=== PATIENT | female | born 1975 | race Caucasian/White ===

== ENCOUNTER 2019-01-23 16:00 | Emergency (ER) | payer MEDICAID ==
[~2019-01-23] VITALS: Ht 161.3 cm; Wt 61.4 kg
[~2019-01-23 16:00] MED LIST: NO HOME MEDS
[2019-01-23 16:01] VITALS: BP 108/70
--- NOTE | 2019-01-23 18:07 | NUR ---
PT CALLED TO FAST TRACK X3, NIL. PROVIDER NOTIFIED, NO FURTHER ACTIONS REQUESTED.
== END 2019-01-23 18:07 | disposition left against medical advice (07) ==
LOC: ER 16:01
DX: H66.93 Otitis media, unspecified, bilateral (principal); Z53.21 Procedure and treatment not carried out due to patient leaving prior to being seen by health care provider

== ENCOUNTER 2019-02-08 09:42 | Emergency (ER) | payer MEDICAID ==
[~2019-02-08] VITALS: Ht 160 cm; Wt 59.1 kg
[2019-02-08] MEDS ORDERED: LIDOcaine 1% w/epiNEPHrine 1:200,000 30ml vial IM ONE (09:50)
[2019-02-08 10:46] VITALS: BP 104/70
== END 2019-02-08 10:48 | disposition home or self-care (01) ==
LOC: ER 09:43
DX: S61.011A Laceration without foreign body of right thumb without damage to nail, initial encounter (principal); W26.0XXA Contact with knife, initial encounter; Y93.89 Activity, other specified; Y92.89 Other specified places as the place of occurrence of the external cause; Y99.9 Unspecified external cause status
CPT/HCPCS: 29130; 99283

== ENCOUNTER 2020-02-27 19:39 | Emergency (ER) | payer MEDICAID ==
[~2020-02-27] VITALS: Ht 160 cm; Wt 50.4 kg
[2020-02-27 19:45] VITALS: BP 110/77
--- NOTE | 2020-02-27 20:52 | NUR ---
Pt walked out of the ED after being in department for 1 hour and 5 minutes. I stopped the pt in the [place] as she was leaving and asked her if she could wait while I talk to the provider, she stated that she wanted to go home and follow up with her PCP. I further asked the patient if she would have a seat and give me just a few minutes as the provider had signed up for the patient, she denied stating that she wasn't willing to wait. Talked to CAMACHO Harrison as the pt was walking out and notified him of her leaving.
== END 2020-02-27 20:59 | disposition left against medical advice (07) ==
LOC: ER 19:40
DX: M54.2 Cervicalgia (principal); Z53.21 Procedure and treatment not carried out due to patient leaving prior to being seen by health care provider

== ENCOUNTER 2023-04-01 21:36 | Emergency (ER) | payer MEDICAID | END 2023-04-01 22:28 | disposition left against medical advice (07) | LOC: ER 21:37 | DX: R22.30 Localized swelling, mass and lump, unspecified upper limb (principal); Z53.21 Procedure and treatment not carried out due to patient leaving prior to being seen by health care provider ==

== ENCOUNTER 2023-04-03 12:13 | Emergency (ER) | payer MEDICAID ==
[~2023-04-03] VITALS: Ht 165.1 cm; Wt 54.2 kg
[2023-04-03 14:35] VITALS: BP 105/62; PULSE 84; RESP 18; TEMP 98.3; O2SAT 100
== END 2023-04-03 17:54 | disposition left against medical advice (07) ==
LOC: ER 12:14
DX: M79.643 Pain in unspecified hand (principal); Z53.21 Procedure and treatment not carried out due to patient leaving prior to being seen by health care provider
CPT/HCPCS: 99281

== ENCOUNTER 2025-06-21 16:01 | Emergency (ER) | payer MEDICAID ==
[~2025-06-21] VITALS: Ht 165.1 cm; Wt 56.8 kg
[2025-06-21 16:06] VITALS: BP 95/70; PULSE 104; RESP 16; TEMP 98.1; O2SAT 97
[2025-06-21 16:46] LABS: MEAN PLATELET VOLUME 8.0 FL (7.4-10.4); RED CELL DISTRIBUTION WIDTH 15.4 % (11.5-14.5)
[2025-06-21 17:03] LABS: CREATININE 0.40 MG/DL (0.40-0.90); TOTAL CARBON DIOXIDE 30.3 MMOL/L (24-32); eCRCL 156 ML/MIN; eGFR > 90 ML/MIN
--- NOTE | 2025-06-21 19:02 | Physician Documentation ---
History of Present Illness Chief Complaint: Abdominal Pain w/vomiting Stated Complaint: R SIDE PAIN/CONSTIPATION Primary Medical Doctor: [facility] HPI This is a 49-year-old female who presents with five days of constipation, patient reports that she is having bowel movements however they are small and hard. Patient additionally reports right-sided abdominal pain with vomiting. Medication Reconciliation Allergies: Coded Allergies: No Known Allergies (Unverified , 04/03/23) Miscellaneous Medications Home Med List (No Home Medications), (Reported) Past Medical History Past Medical History: No Pertinent History Past Surgical History: no surgical history Alcohol Use: Heavy Drug Use: none Lives with: Family Lives In: Home Review of Systems ROS As stated above in the HPI, otherwise all systems are reviewed and negative. Physical Exam Vital Signs: Temperature: 98.1, Source: Oral, Heart Rate: 104, Respiratory Rate: 16, BP: 95/70, Pulse Oximetry: 97, Weight: 56.820 Oxygen Flow Rate: 0 Physical Exam VITALS: Reviewed and as above. GENERAL: Alert, nontoxic appearing, no apparent distress. RESPIRATORY: No increased work of breathing, no respiratory distress, speaking in full clear sentences Progress Results/Orders Results/Orders Vital Signs 06/21/25 16:06 Temp 98.1 Pulse 104 Resp 16 B/P (MAP) 95/70 Pulse Ox 97 O2 Flow Rate 0 Laboratory Tests Test 06/21/25 16:24 White Blood Count 6.9 Red Blood Count 4.93 Hemoglobin 13.7 Hematocrit 41.2 Mean Corpuscular Volume 83.6 Mean Corpuscular Hemoglobin 27.7 Mean Corpuscular Hemoglobin Concent 33.1 Red Cell Distribution Width 15.4 H Platelet Count 381 Mean Platelet Volume 8.0 Neutrophils (%) (Auto) 66.9 Lymphocytes (%) (Auto) 20.1 L Monocytes (%) (Auto) 8.3 Eosinophils (%) (Auto) 3.8 Basophils (%) (Auto) 0.9 Neutrophils # (Auto) 4.6 Lymphocytes # (Auto) 1.4 Monocytes # (Auto) 0.6 Eosinophils # (Auto) 0.3 Basophils # (Auto) 0.1 CBC Comment Sodium Level 138 Potassium Level 4.0 Chloride Level 100 Carbon Dioxide Level 30.3 Anion Gap 8 Blood Urea Nitrogen 8 Creatinine 0.40 Estimated GFR/1.73 m2 > 90 BUN/Creatinine Ratio 20.0 Glucose Level 105 H Calcium Level 8.6 Total Bilirubin 0.3 Aspartate Amino Transf (AST/SGOT) 26 Alanine Aminotransferase (ALT/SGPT) 29 Alkaline Phosphatase 93 Total Protein 7.7 Albumin 3.2 L Globulin 4.5 H Albumin/Globulin Ratio 0.7 L Lipase 21 Chemistry Comments Medical Decision Making Additional information obtaine: N/A Findings MSE performed in triage and patient returned to ED lobby by nursing staff to await available ED room Differential Dx:Considerations: Appendicitis, Bowel obstruction, Cholelithasis, Constipation, Gastritis/PUD, Gastroenteritis, Inflammatory BD, Urinary obstruction, Urinary tract infection, Urolithiasis Departure Disposition: LEFT AWOL/ELOPED Impression: Primary Impression: Constipation Qualified Codes: K59.00 - Constipation, unspecified Additional Impression: Abdominal pain Qualified Codes: R10.9 - Unspecified abdominal pain Referrals: NO PRIMARY CARE PROVIDER (PCP) Signature Scribe Signature: No scribe Attestation: The note accurately reflects work and decisions made by me.NEIL Bradley 06/23/25 00:15 MARIA ESTHER SANCHES Jun 21, 2025 19:02
== END 2025-06-21 19:10 | disposition left against medical advice (07) ==
LOC: ER 16:01
DX: K59.00 Constipation, unspecified (principal)
CPT/HCPCS: 36415; 80053; 83690; 85025; 99283